=== PATIENT | female | born 1985 | race Caucasian/White ===

== ENCOUNTER → 2020-08-18 | Outpatient (CLI) | payer OTHER ==
--- NOTE | 2020-08-21 19:55 | HM ---
HOLTER MONITOR REPORT The patient was monitored for 48 hours. The baseline rhythm is sinus mechanism with normal conduction, the average rate 88 beats per minute, minimum 63, maximum 154 beats per minute. Ventricular ectopic activity was not present. Supraventricular ectopic activity was present in the form of rare single PACs. Symptoms of sharp pain did not correlate with any dysrhythmia. CONCLUSION: 1. Sinus mechanism baseline rhythm. 2. No ventricular ectopic activity. 3. Rare supraventricular ectopy activity. 4. Symptoms did not correlate with any dysrhythmia. MMODL / IJN: [id number] /
== END | disposition home or self-care (01) ==
LOC: RADECHMAIN 09:52
PROVIDERS: ATTEND Family Medicine
DX: I49.9 Cardiac arrhythmia, unspecified (principal); R94.31 Abnormal electrocardiogram [ECG] [EKG]
CPT/HCPCS: 93225; 93226